=== PATIENT | female | born 1970 | race Caucasian/White ===

== ENCOUNTER 2019-08-27 01:47 | Emergency (ER) | payer MEDICARE ==
[~2019-08-27] VITALS: Ht 172.7 cm; Wt 71.0 kg
[2019-08-27 04:32] VITALS: BP 132/77
== END 2019-08-27 04:40 | disposition home or self-care (01) ==
LOC: ER 01:47
DX: F22 Delusional disorders (principal); Z98.890 Other specified postprocedural states
CPT/HCPCS: 99283